=== PATIENT | male | born 1985 | race Caucasian/White ===

== ENCOUNTER 2025-07-23 10:45 | Emergency (ER) | payer OTHER, SELFPAY ==
[2025-07-23 10:51] VITALS: BP 150/97
[2025-07-23] MEDS: MOTRIN 600 MG PO (11:50)
--- NOTE | 2025-07-23 11:50 | ED.GENMED ---
History of Present Illness
<Zahida Rowley PA-C - Last Filed: 07/24/25 10:43>
General
Chief Complaint: Skin Problem
Source: patient
Exam Limitations: none
Time Seen by Provider: 07/23/25 11:34
Nursing documentation reviewed up to this point in time: agreed with
History of Present Illness
History of Present Illness:
Patient is a 40-year-old male who presents to the emergency department with abscess of left forearm. Patient states that symptoms began approximately 2 weeks ago after getting a staple stuck in his left forearm from a piece of chris. he was
able to successfully remove staple from arm at that time. He then noticed progressive redness and swelling in that area over the following week. He was seen at urgent care 2 days ago where they started him on a course of clindamycin. They did not
drain abscess.
Patient states that he has continued to have fevers at home with a Tmax of 102.1 yesterday. This morning, he states that he woke up and has been afebrile without taking an antipyretic. However, he does note worsening redness/swelling despite oral
antibiotics prompting visit to emergency department today. Patient denies any pain with range of motion in left wrist or elbow. Patient denies any nausea/vomiting.
Patient states that his most recent tetanus vaccine was within the past 5 years.
Review of Systems
<Zahida Rowley PA-C - Last Filed: 07/24/25 10:43>
Review of Systems
Allergies reviewed?: Yes
All Other Systems: ROS reviewed and negative except as documented in HPI and ROS
Phy Exam
<Zahida Rowley PA-C - Last Filed: 07/24/25 10:43>
General Physical Exam
General Presentation: well appearing and no apparent distress
ENT Exam
ENT Exam: neck supple
Cardiovascular Exam
Cardiovascular Exam: regular rate/rhythm
Pulmonary Exam
Pulmonary Exam: lungs clear and no respiratory distress
Gastrointestinal Exam
Gastrointestinal Exam: non tender, soft and non distended
Neurological Exam
Neurological Exam: alert, oriented x3, speech normal and normal gait
Skin Exam
Skin Exam: other (localized swelling with tender, painful mass on left dorsal forearm with surrounding induration. Very small area of fluctuance. No pain with ROM of left wrist or elbow)
Course
<Zahida Rowley PA-C - Last Filed: 07/24/25 10:43>
Orders/Labs/Results
Orders:
Orders
07/23/25 11:42
Ibuprofen [Motrin] 600 mg PO NOW STA
07/23/25 12:36
Doxycycline [Vibramycin] 100 mg PO NOW STA
07/23/25 12:46
Wound Culture [Wound/Abscess/Other Culture] Urgent
ELIDA Source: Arm
Specimen Description: Left
Date Specimen was Collected: 07/23/25
Time Specimen was Collected: 12:44
07/23/25 11:43
07/23/25 11:43
Vital Signs
Initial and Last Documented VS:
Initial Vital Signs
Temp Pulse Resp BP Pulse Ox
98.9 F 100 20 150/97 99
07/23/25 10:51 07/23/25 10:51 07/23/25 10:51 07/23/25 10:51 07/23/25 10:51
Last Documented Vital Signs
Temp Pulse Resp BP Pulse Ox
98.9 F 68 18 150/96 99
07/23/25 10:51 07/23/25 12:53 07/23/25 12:53 07/23/25 12:53 07/23/25 12:53
<Bryan Gardner DO - Last Filed: 07/23/25 11:53>
Orders/Labs/Results
Orders:
Orders
07/23/25 11:42
Ibuprofen [Motrin] 600 mg PO NOW STA
07/23/25 12:36
Doxycycline [Vibramycin] 100 mg PO NOW STA
07/23/25 12:46
Wound Culture [Wound/Abscess/Other Culture] Urgent
ELIDA Source: Arm
Specimen Description: Left
Date Specimen was Collected: 07/23/25
Time Specimen was Collected: 12:44
07/23/25 11:43
07/23/25 11:43
Vital Signs
Initial and Last Documented VS:
Initial Vital Signs
Temp Pulse Resp BP Pulse Ox
98.9 F 100 20 150/97 99
07/23/25 10:51 07/23/25 10:51 07/23/25 10:51 07/23/25 10:51 07/23/25 10:51
Last Documented Vital Signs
Temp Pulse Resp BP Pulse Ox
98.9 F 68 18 150/96 99
07/23/25 10:51 07/23/25 12:53 07/23/25 12:53 07/23/25 12:53 07/23/25 12:53
Procedures
<Zahida Rowley PA-C - Last Filed: 07/24/25 10:43>
Incision/Drainage/Joint Aspiration
Left Arm:
Anethesia: 1% Lidocaine with Epi
Preparation: cleaned with Hibiclens
Type of procedure: incise and drain
Nature of site: abscess
Description of abscess: greater than 3cm
Loculations broken up: Yes
How much fluid was obtained?: large amount
Fluid description: purulent
Treatment: left open for drainage
<Zahida Rowley PA-C - Last Filed: 07/24/25 10:43>
MDM/Problems Addressed
Differential Diagnosis Includes:
Not limited to: abscess, cellulitis, hematoma, etc
MDM/Problems Addressed:
40-year-old male with left forearm abscess. Not responding to oral clindamycin as prescribed urgent care 2 days ago however no attempted drainage at urgent care. Patient does report fevers over the past few days however he is afebrile today
without antipyretic. No vomiting. Vitals as above. On exam, patient has an erythematous and tender mass on left dorsal forearm with surrounding induration. Small area of fluctuance noted.
Impression is forearm abscess. Patient does not appear toxic. He is afebrile here with otherwise stable vital signs. Will attempt incision and drainage to obtain wound culture.
Verbal consent obtained by patient. Area was anesthetized with 1% lidocaine with epinephrine and cleansed with chlorhexidine. Small incision made in area of fluctuance with significant amount of purulent drainage. Wound culture obtained.
Incision was left open for continued drainage at home.
Do not feel patient requires admission for IV antibiotics given next successful incision/drainage today. Will switch patient to doxycycline and discharge home with strict return precautions and close monitoring. Advise return with any
persistent/worsening swelling or pain in area or signs of systemic infection. Patient is comfortable with plan
Chronic conditions affecting care:
N/A
Acute Exacerbation and/or Progression of Chronic Illness:
N/A
<Zahida Rowley PA-C - Last Filed: 07/24/25 10:43>
*Pulse Oximetry
SaO2: 99
Oxygen Mode of Delivery: Room air
Patient hypoxic: no
*EKG
Interpreted by ED Provider?: NA
*Time Lock Expert Interpretation
Rate: Time Lock Expert- N/A
*Critical Care Note
Total Time (30-74mins, 75-104mins- exclusive of procedures): Not Applicable
ED Attending Note
<Zahida Rowley PA-C - Last Filed: 07/24/25 10:43>
-
Portions of this chart may have been created with voice recognition software.� Occasional wrong word or��sound alike� substitutions may have occurred due to the inherent limitations of voice recognition software.
<Bryan Gardner, DO - Last Filed: 07/23/25 11:53>
ED Attending Note
Patient seen and examined by attending physician: Yes
I performed the substantive portion of visit, reviewed & personally made and approve the management plan that is documented in note by myself or MICHELLE.: Yes
ED Attending Note:
I evaluated the patient at bedside, the patient does have indurated tissue with overlying erythema at the proximal left forearm, it is unclear if we will get much with drainage but we will attempt incision and drainage. He reported a Tmax of 102+
yesterday but currently is afebrile and did not take any antipyretic today. He is very well-appearing and healthy appearing. Will switch to doxycycline, will also obtain wound culture.
Discharge Plan
Departure
Patient Disposition: Home (Routine Discharge)
Date of Disposition: 07/23/25
Time of Disposition: 12:41
Patient with high blood pressure during this ER visit?: Yes
Condition: Good
Discharge Problem:
Abscess of left forearm
Instructions: Cellulitis (Skin Infection), Adult (DC), BLOOD PRESSURE, Skin Abscess
Prescriptions:
New
doxycycline monohydrate 100 mg capsule
100 mg PO BID 7 Days Qty: 14 0RF
Activity Restrictions/Additional Instructions:
RETURN TO THE EMERGENCY DEPARTMENT WITH ANY FEVER, CHILLS, WORSENING IN PAIN, REDNESS, OR SWELLING OF LEFT FOREARM, OR ANY OTHER CONCERNS
- The abscess in your left forearm was drained today in the emergency department. A culture was taken.
- Please keep the area clean, dry, and covered. It may continue to drain over the next few days. You can take Tylenol and/or Motrin as needed for pain.
- You can discontinue your clindamycin. A prescription for doxycycline has been sent to your pharmacy which you can take twice a day for the next week
- Follow-up with primary care for further evaluation/management and to ensure that your symptoms are improving
Monitor your symptoms closely and return to the emergency department with any acute worsening/new symptoms or signs of worsening infection
Interventions
Interventions:
*General Assessment Last Done: 07/23/25 11:57
*Neglect/Abuse Screening Last Done: 07/23/25 10:51
*ED COVID-19 Vaccine History Last Done: 07/23/25 11:57
*ED Influenza Vaccine History Last Done: 07/23/25 11:57
[facility] Risk Assessment Tool Last Done: 07/23/25 11:54
*Risk Screen - Suicide (C-SSRS) Last Done: 07/23/25 10:51
*Nursing Disposition Last Done: 07/23/25 13:06
ED-Skin Assessment Last Done: 07/23/25 11:52
Discharge Date and Time
Discharge Date/Time: 07/23/25 13:06
Print Language: ZAMBIAN
[2025-07-23] MEDS: VIBRAMYCIN 100 MG PO (12:47)
[2025-07-23 12:53] VITALS: BP 150/96
== END 2025-07-23 13:06 | disposition home or self-care (01) ==
LOC: EMR 10:45
PROVIDERS: EMERGENCY PHYSICIAN Emergency Medicine
DX: L02.818 Cutaneous abscess of other sites (principal); R50.9 Fever, unspecified; R03.0 Elevated blood-pressure reading, without diagnosis of hypertension
CPT/HCPCS: 99283; 10060; 87070; 87205